=== PATIENT | female | born 1980 | race American Indian/Alaskan Native ===

== ENCOUNTER 2017-08-18 17:12 | Emergency (ER) | payer OTHER ==
--- NOTE | 2017-08-18 19:00 | XRay Report ---
FINAL REPORT EXAM: XR FINGER(S) 2+V LT HISTORY: injury TO LT LITTLE FINGER TECHNIQUE: Left 5th finger three views PRIORS: None. FINDINGS: There is acute traumatic moderately displaced fracture through the distal aspect distal phalanx of the 5th digit extending through the tuft. Articular surface appears intact. No evidence for dislocation. No radiopaque foreign bodies are identified. IMPRESSION: Acute fracture distal phalanx of the 5th digit
--- NOTE | 2017-08-18 23:12 | Emergency Department Report ---
ED Upper Extremity Inj HPI - General Chief Complaint: Extremity Injury, Upper Stated Complaint: LEFT HAND FINGER PAIN Time Seen by Provider: 08/18/17 22:33 Source: patient Mode of arrival: Ambulatory Limitations: No Limitations - History of Present Illness Initial Comments: This is a 37-year-old female nontoxic, well nourished in appearance, no acute signs of distress presents to the ED with c/o of left 5th digit finger pain status post fall. Patient states she was chasing her dog and tripped and fell on her fifth digit fingertip of the left. Patient denies any numbness, tingling , fever, chills, nausea, vomiting, chest pain or shortness of breath. Patient denies any trauma. Denies any head trauma. Denies loss of consciousness. Patient denies any drug allergies or past medical history besides asthma and hypertension. MD Complaint: Injury to:: left, finger -: This afternoon Other Extremity Injury: Fingers: Left (5th) Other Injuries: none Place: home Severity scale (0 -10): 8 Improves With: none Worsens With: none Context: fall, direct blow Associated Symptoms: denies other symptoms. denies: weakness, numbness, neck pain, suspects foreign body, nausea/vomiting, heard/felt popping sensat - Related Data Previous Rx's Medication Instructions Recorded Last Taken Type Ibuprofen [Motrin] 600 mg PO Q8H PRN #30 tablet 08/18/17 Unknown Rx Allergies Allergy/AdvReac Type Severity Reaction Status Date / Time No Known Allergies Allergy Unverified 08/18/17 18:25 ED Review of Systems ROS: Stated complaint: LEFT HAND FINGER PAIN Other details as noted in HPI Constitutional: denies: chills, fever Eyes: denies: eye pain, eye discharge, vision change ENT: denies: ear pain, throat pain Respiratory: denies: cough, shortness of breath, wheezing Cardiovascular: denies: chest pain, palpitations Endocrine: no symptoms reported Gastrointestinal: denies: abdominal pain, nausea, diarrhea Genitourinary: denies: urgency, dysuria, discharge Musculoskeletal: denies: back pain, joint swelling, arthralgia Skin: denies: rash, lesions Neurological: denies: headache, weakness, paresthesias Psychiatric: denies: anxiety, depression Hematological/Lymphatic: denies: easy bleeding, easy bruising ED Past Medical Hx - Past Medical History Previous Medical History?: No Hx Hypertension: Yes Hx Asthma: Yes - Social History Smoking Status: Never Smoker Substance Use Type: None - Medications Home Medications: Home Medications Medication Instructions Recorded Confirmed Last Taken Type Ibuprofen [Motrin] 600 mg PO Q8H PRN #30 tablet 08/18/17 Unknown Rx ED Physical Exam - General Limitations: No Limitations General appearance: alert, in no apparent distress - Head Head exam: Present: atraumatic, normocephalic - Eye Eye exam: Present: normal appearance - ENT ENT exam: Present: mucous membranes moist - Neck Neck exam: Present: normal inspection - Respiratory Respiratory exam: Present: normal lung sounds bilaterally. Absent: respiratory distress - Cardiovascular Cardiovascular Exam: Present: regular rate, normal rhythm. Absent: systolic murmur, diastolic murmur, rubs, gallop - GI/Abdominal GI/Abdominal exam: Present: soft, normal bowel sounds - Extremities Exam Extremities exam: Present: normal inspection, full ROM, tenderness, normal capillary refill. Absent: pedal edema, joint swelling, calf tenderness - Expanded Upper Extremity Exam Left General: Present: normal inspection Shoulder Exam: Present: normal inspection, full ROM Upper Arm exam: Present: normal inspection, full ROM Elbow exam: Present: normal inspection, full ROM Forearm Wrist exam: Present: normal inspection, full ROM. Absent: tenderness, swelling, abrasion, laceration, ecchymosis, deformity, crepidus, dislocation, erythema, tenderness over anatomical snuff box, pain with axial thumb loading Hand Wrist exam: Present: normal inspection, full ROM, tenderness. Absent: swelling, abrasion, laceration, ecchymosis, deformity, crepidus, dislocation, erythema, amputation, nail avulsion, subungual hematoma Hand L/R Back: 1 - pain Neuro motor exam: Present: wrist extension intact, thumb opposition intact, thumb IP flexion intact, thumb adduction intact, fingers 2-5 abduction intact Neurosensory exam: Present: 2-point discrimination, radial nerve intact, ulnar nerve intact, median nerve intact Vascular: Present: vascular compromise, normal capillary refill, radial pulse, brachial pulse, ulnar pulse - Back Exam Back exam: Present: normal inspection, full ROM. Absent: tenderness, CVA tenderness (R), CVA tenderness (L), muscle spasm, paraspinal tenderness, vertebral tenderness, rash noted - Neurological Exam Neurological exam: Present: alert, oriented X3, CN II-XII intact, normal gait, reflexes normal - Psychiatric Psychiatric exam: Present: normal affect, normal mood - Skin Skin exam: Present: warm, dry, intact, normal color. Absent: rash ED Course Vital Signs 08/18/17 18:22 Temperature 98.4 F Pulse Rate 79 Respiratory 16 Rate Blood Pressure 136/83 O2 Sat by Pulse 100 Oximetry - Reevaluation(s) Reevaluation #1: 08/18/17 23:17 Patient is speaking in full sentences with no signs of distress noted. ED Medical Decision Making - Medical Decision Making 37-year-old female that presents with left fifth digit distal phalanx fracture. Patient is stable and was examined by me. X-ray has been obtained and dictated radiologist. Patient is notified of x-ray results with her by the patient. patient received a silver baseball splint to the extremity. patient was instructed to rice therapy. patient received motrin in the ed as well as discharged. patient was instructed Follow-up with a orthopedic doctor in 3-5 days or if symptoms worsen and continue return to emergency room as soon as possible. At time time of discharge, the patient does not seem toxic or ill in appearance. No acute signs of distress noted. Patient agrees to discharge treatment plan of care. No further questions noted by the patient. Critical care attestation.: If time is entered above; I have spent that time in minutes in the direct care of this critically ill patient, excluding procedure time. ED Disposition Clinical Impression: Finger fracture Qualifiers: Encounter type: initial encounter Finger: little finger Fracture type: closed Phalanx: distal Fracture alignment: nondisplaced Laterality: left Qualified Code (s): S62.667A - Nondisplaced fracture of distal phalanx of left little finger, initial encounter for closed fracture Disposition: TO HOME OR SELFCARE Is pt being admited?: No Does the pt Need Aspirin: No Condition: Stable Instructions: Ibuprofen (By mouth), Finger Fracture (ED), RICE Therapy (ED) Additional Instructions: Follow-up with a orthopedic doctor in 3-5 days or if symptoms worsen and continue return to emergency room as soon as possible. Rest, and ice extremity. Prescriptions: Ibuprofen [Motrin] 600 mg PO Q8H PRN #30 tablet PRN Reason: Pain Referrals: PRIMARY CARE, [Primary Care Provider] - 3-5 Days MOUSTAPHA ELENA MD [Staff Physician] - 3-5 Days [facility] [Outside] - 3-5 Days [facility] [Outside] - 3-5 Days Forms: Work/School Release Form(ED)
[2017-08-18] MEDS ORDERED: MOTRIN PO ONE (23:13)
[2017-08-18 23:38] VITALS: BP 135/82
== END 2017-08-18 23:38 | disposition home or self-care (01) ==
LOC: ED 17:12
DX: S62.667A Nondisplaced fracture of distal phalanx of left little finger, initial encounter for closed fracture (principal); I10 Essential (primary) hypertension; J45.909 Unspecified asthma, uncomplicated; W01.10XA Fall on same level from slipping, tripping and stumbling with subsequent striking against unspecified object, initial encounter; Y93.89 Activity, other specified; Y99.8 Other external cause status; Y92.009 Unspecified place in unspecified non-institutional (private) residence as the place of occurrence of the external cause

== ENCOUNTER 2019-05-15 14:20 | Emergency (ER) | payer SELFPAY ==
[2019-05-15 14:31] VITALS: BP 147/92
[2019-05-15] MEDS ORDERED: dexAMETHasone 20 MG/5 ML VIAL IM ONE (14:32)
--- NOTE | 2019-05-15 14:33 | Event Note ---
ED Screening Note Date of service: 05/15/19 Time: 14:31 ED Screening Note: 38 y o female with pmh of asthma presents with dry cough and ran out of meds no asthma attack also left eye swelling and irritation, resolved This initial assessment/diagnostic orders/clinical plan/treatment(s) is/are terry bject to change based on patients health status, clinical progression and re- assessment by fellow clinical providers in the ED. Further treatment and workup at subsequent clinical providers discretion. Patient/guardian urged not to elope from the ED as their condition may be serious if not clinically assessed and managed. Initial orders include: decadron inhaler refill cough suppressant
[2019-05-15] MEDS ORDERED: ALBUTEROL 2.5 MG/3 ML NEBU IH ONE (15:29)
[2019-05-15] MEDS ORDERED: predniSONE 20 MG TAB PO ONE (15:29)
--- NOTE | 2019-05-15 15:32 | Emergency Department Report ---
Minor Respiratory - HPI Chief Complaint: Dyspnea/Respdistress Stated Complaint: ASTHMA/MED REFILL/LFT EYE SWELL Time Seen by Provider: 05/15/19 14:29 Duration: 5 Days Pain Location: Chest Severity: mild Minor Respiratory: Yes Rhinorrhea, Yes Able to Tolerate Fluids, Yes Cough, No Sore Throat, No Ear Pain, No Sick Contacts, No Hemoptysis, No Chest Pain, No Shortness of Breath, No Fever Other History: 38 YO AA FEMALE COME TO ER WITH WHEEZING. SHE HAS ASTHMA AND IS OUT OF HER INHALER. NO FEVER. NO PURULENT SPUTUM. ED Review of Systems ROS: Stated complaint: ASTHMA/MED REFILL/LFT EYE SWELL Other details as noted in HPI Comment: All other systems reviewed and negative ED Past Medical Hx - Past Medical History Previous Medical History?: Yes Hx Hypertension: Yes Hx Asthma: Yes - Surgical History Past Surgical History?: No - Family History Family history: no significant - Social History Smoking Status: Never Smoker - Medications Home Medications: Home Medications Medication Instructions Recorded Confirmed Last Taken Type ALBUTEROL NEB's [Proventil 0.083% 2.5 mg IH TID PRN #1 box 05/15/19 Unknown Rx NEBS] Albuterol Sulfate [Proair 90 mcg IH QID PRN #1 [email or web address] 05/15/19 Unknown Rx Respiclick] Cetirizine HCl [ZyrTEC] 10 mg PO DAILY #30 capsule 05/15/19 Unknown Rx Fluticasone [Flonase] 1 spray NS QDAY #1 bottle 05/15/19 Unknown Rx predniSONE [Deltasone] 20 mg PO DAILY #5 tablet 05/15/19 Unknown Rx Minor Respiratory Exam - Exam General: Vital signs noted. No distress. Alert and acting appropriately. HEENT: Yes Moist Mucous Membranes, Yes Rhinorrhea, No Pharyngeal Erythema, No Pharyngeal Exudates, No Conjuctival Injection, No Frontal Tenderness, No Maxillary Tenderness Ear: Neither TM Bulge, Neither TM Erythema, Neither EAC Pain, Neither EAC Discharge Neck: Yes Supple, No Adenopathy Lungs: Yes Good Air Exchange, Yes Wheezes Heart: Yes Regular Abdomen: No Tenderness Skin: No Rash Neurologic: Alert and oriented, no deficits. Musculoskeletal: Unremarkable. ED Course Vital Signs 05/15/19 14:29 Temperature 97.7 F Pulse Rate 83 Respiratory 20 Rate Blood Pressure 147/92 [Right] O2 Sat by Pulse 99 Oximetry ED Medical Decision Making - Medical Decision Making NO FEVER NON TOXIC NON ILL AMBULATORY TO ER TAKING PO MEDICATED IN ER DC HOME WITH DC PLAN OF CARE, RX AND FOLLOW UP Vital Signs 05/15/19 14:29 Temperature 97.7 F Pulse Rate 83 Respiratory 20 Rate Blood Pressure 147/92 [Right] O2 Sat by Pulse 99 Oximetry - Differential Diagnosis SIMPLE URI- ASTHMA AE- PNA Critical care attestation.: If time is entered above; I have spent that time in minutes in the direct care of this critically ill patient, excluding procedure time. ED Disposition Clinical Impression: Asthma with acute exacerbation, Medication refill Disposition: DC-01 TO HOME OR SELFCARE Is pt being admited?: No Does the pt Need Aspirin: No Condition: Stable Instructions: Asthma (ED) Additional Instructions: KEEP WELL HYDRATED MEDS ORDERED TODAY FOLLOW UP WITH PCP REFERRAL BELOW Prescriptions: predniSONE [Deltasone] 20 mg PO DAILY #5 tablet Fluticasone [Flonase] 1 spray NS QDAY #1 bottle Albuterol Sulfate [Proair Respiclick] 90 mcg IH QID PRN #1 aer.[email or web address] PRN Reason: Wheezing ALBUTEROL NEB's [Proventil 0.083% NEBS] 2.5 mg IH TID PRN #1 box PRN Reason: Wheezing Cetirizine HCl [ZyrTEC] 10 mg PO DAILY #30 capsule Referrals: SARAH UGALDE MD [Staff Physician] - 3-5 Days Time of Disposition: 15:30
== END 2019-05-15 16:31 | disposition home or self-care (01) ==
LOC: ED 14:20
DX: J45.901 Unspecified asthma with (acute) exacerbation (principal); I10 Essential (primary) hypertension; Z76.0 Encounter for issue of repeat prescription; Z79.899 Other long term (current) drug therapy
CPT/HCPCS: 94640; 99282; J7512

== ENCOUNTER 2019-07-06 20:20 | Emergency (ER) | payer SELFPAY ==
[2019-07-06] MEDS ORDERED: cloNIDine 0.1 MG TAB PO ONE (21:45)
[2019-07-06] MEDS ORDERED: LEVALBUTEROL 0.63 MG/3 ML NEBU IH ONE (21:45)
[2019-07-06] MEDS ORDERED: methylPREDNISolone Sod Succinate 125 MG/2 ML INJ IM ONE (21:45)
[2019-07-06] MEDS ORDERED: IPRATROPIUM 0.02% NEBU 2.5 ML IH ONE (21:45)
--- NOTE | 2019-07-06 21:47 | Emergency Department Report ---
ED Asthma HPI - General Chief Complaint: Adult Asthma Stated Complaint: SOB ASTHMA Time Seen by Provider: 07/06/19 21:43 Source: patient Mode of arrival: Ambulatory Limitations: No Limitations - History of Present Illness Initial Comments: This is a 39-year-old female here report that she is having difficulty breathing, wheezing and some coughing and this is similar to her her previous asthma attack. Denies any fever or chills. Denies any chest pain or back pain. Patient has elevated blood pressure and report that she ran out of her losartan /HCTZ which was prescribed by Dr. Villavicencio at [facility] who is her primary care physician and that they have losartan and back order and she tried 6 pharmacy and they do not have losartan/HCTZ. She said her blood pressures usually stable when she takes her blood pressure medication. Denies any abdominal pain. Denies any chest pain or back pain. Denies any visual difficulties or dizziness. Denies any nausea or vomiting. Denies any neck pain or stiffness She says she had headache on and off generalize which is usually caused by elevated blood pressure and she said earlier it was 7 out of 10 but now it is about 2 out of 10. She has no surgical history but states medical history is hypertension and asthma. She is requesting blood pressure medication and refill on her asthma medication MD Complaint: "asthma attack", shortness of breath, wheezing Onset/Timin -: days(s) Asthma History: childhood onset, history of prior ED visit Severity: similar to prior Context: ran out of meds Associated Symptoms: dry cough. denies: productive cough, fever, chest pain, hemoptysis, leg edema, syncope Treatments Prior to Arrival: other - Related Data Current Asthma Therapy: inhaled bronchodilator Previous Rx's Medication Instructions Recorded Last Taken Type ALBUTEROL NEB's [Proventil 0.083% 2.5 mg IH TID PRN #1 box 05/15/19 Unknown Rx NEBS] Albuterol Sulfate [Proair 90 mcg IH QID PRN #1 aer.pow.ba 05/15/19 Unknown Rx Respiclick] Cetirizine HCl [ZyrTEC] 10 mg PO DAILY #30 capsule 05/15/19 Unknown Rx Fluticasone [Flonase] 1 spray NS QDAY #1 bottle 05/15/19 Unknown Rx predniSONE [Deltasone] 20 mg PO DAILY #5 tablet 05/15/19 Unknown Rx ALBUTEROL Inhaler (OR & NICU) 2 puff IH Q6H PRN #1 inhalation 07/07/19 Unknown Rx [ProAir HFA Inhaler] Inhaler, Assist Devices [Space 1 each MC QDAY #1 spacer 07/07/19 Unknown Rx Chamber Plus] Prednisone [predniSONE 10 mg 10 mg PO .TAPER 6 Days #1 tab.ds.pk 07/07/19 Unknown Rx (6-Day Pack, 21 Tabs)] hydroCHLOROthiazide [HCTZ] 25 mg PO QDAY 30 Days #60 tablet 07/07/19 Unknown Rx Allergies Allergy/AdvReac Type Severity Reaction Status Date / Time No Known Allergies Allergy Verified 05/15/19 14:30 ED Review of Systems ROS: Stated complaint: SOB ASTHMA Other details as noted in HPI Constitutional: denies: chills, fever Eyes: denies: eye pain ENT: denies: ear pain, throat pain, congestion Respiratory: cough, shortness of breath, SOB with exertion, wheezing. denies: orthopnea, SOB at rest, stridor Cardiovascular: denies: chest pain, palpitations, dyspnea on exertion, edema, syncope Gastrointestinal: denies: abdominal pain, nausea, vomiting, diarrhea, constipation, hematochezia Musculoskeletal: denies: back pain, joint swelling, arthralgia, myalgia Skin: denies: rash Neurological: headache. denies: weakness, numbness, paresthesias, confusion, abnormal gait, vertigo ED Past Medical Hx - Past Medical History Previous Medical History?: Yes Hx Hypertension: Yes Hx Asthma: Yes - Surgical History Past Surgical History?: No - Family History Family history: hypertension - Social History Smoking Status: Former Smoker Substance Use Type: None - Medications Home Medications: Home Medications Medication Instructions Recorded Confirmed Last Taken Type ALBUTEROL NEB's [Proventil 0.083% 2.5 mg IH TID PRN #1 box 05/15/19 Unknown Rx NEBS] Albuterol Sulfate [Proair 90 mcg IH QID PRN #1 aer.pow.ba 05/15/19 Unknown Rx Respiclick] Cetirizine HCl [ZyrTEC] 10 mg PO DAILY #30 capsule 05/15/19 Unknown Rx Fluticasone [Flonase] 1 spray NS QDAY #1 bottle 10/08/19 Unknown Rx predniSONE [Deltasone] 20 mg PO DAILY #5 tablet 05/15/19 Unknown Rx ALBUTEROL Inhaler (OR & NICU) 2 puff IH Q6H PRN #1 inhalation 07/07/19 Unknown Rx [ProAir HFA Inhaler] Inhaler, Assist Devices [Space 1 each MC QDAY #1 spacer 07/07/19 Unknown Rx Chamber Plus] Prednisone [predniSONE 10 mg 10 mg PO .TAPER 6 Days #1 tab.ds.pk 07/07/19 Unknown Rx (6-Day Pack, 21 Tabs)] hydroCHLOROthiazide [HCTZ] 25 mg PO QDAY 30 Days #60 tablet 07/07/19 Unknown Rx ED Physical Exam - General Limitations: No Limitations General appearance: alert, in no apparent distress - Head Head exam: Present: atraumatic, normocephalic, normal inspection - Eye Eye exam: Present: normal appearance, PERRL, EOMI Pupils: Present: normal accommodation - ENT ENT exam: Present: normal exam, normal orophraynx, mucous membranes moist, TM's normal bilaterally, normal external ear exam - Neck Neck exam: Present: normal inspection, full ROM. Absent: tenderness, lymphadenopathy - Respiratory Respiratory exam: Present: wheezes, other (Dry cough). Absent: respiratory distress, rales, rhonchi, stridor, chest wall tenderness, accessory muscle use, decreased breath sounds, prolonged expiratory - Cardiovascular Cardiovascular Exam: Present: regular rate, normal rhythm, normal heart sounds - GI/Abdominal GI/Abdominal exam: Present: soft, normal bowel sounds. Absent: distended, tenderness, organomegaly, bruit - Extremities Exam Extremities exam: Present: normal inspection, normal capillary refill, other (No cce. + 2 pulses in all extremities, no neurovascular compromise). Absent: full ROM, tenderness, pedal edema, joint swelling, calf tenderness - Back Exam Back exam: Present: normal inspection, full ROM, other (blades without any difficulties). Absent: tenderness - Neurological Exam Neurological exam: Present: alert, oriented X3, normal gait, reflexes normal. Absent: motor sensory deficit - Expanded Neurological Exam Expanded Neurological exam: Absent: innattentive, memory loss-remote event, memory loss- recent event, ataxia, receptive aphasia, expressive aphasia, total aphasia, tremor, protecting the airway Patient oriented to: Present: person, place, time Speech: Present: fluid speech Cranial nerves: EOM's Intact: Normal, Gag Reflex: Normal, Nystagmus: Normal, Facial Sensation: Normal Cerebellar function: Romberg: Normal Upper motor neuron: Pronator Drift: Normal, Sensory Extinction: Normal Sensory exam: Upper Extremity Light Touch: Normal, Upper Extremity Temperature: Normal, Lower Extremity Light Touch: Normal, Lower Extremity Temperature: Normal Motor strength exam: RUE: 5, LUE: 5, RLE: 5, LLE: 5 Best Eye Response ([place]): (4) open spontaneously Best Motor Response ([place]): (6) obeys commands Best Verbal Response ([place]): (5) oriented [place] Total: 15 - Psychiatric Psychiatric exam: Present: normal affect, normal mood - Skin Skin exam: Present: warm, intact, normal color. Absent: rash ED Course Vital Signs 07/06/19 07/06/19 07/06/19 20:27 22:03 22:40 Temperature 98.4 F Pulse Rate 80 76 Pulse Rate [ 75 Bilateral Throughout] Respiratory 14 18 Rate Respiratory 20 Rate [Bilateral Throughout] Blood Pressure 185/108 187/110 Blood Pressure 187/110 [Left] O2 Sat by Pulse 100 100 Oximetry 07/06/19 23:50 Temperature Pulse Rate Pulse Rate [ Bilateral Throughout] Respiratory Rate Respiratory Rate [Bilateral Throughout] Blood Pressure Blood Pressure 160/100 [Left] O2 Sat by Pulse Oximetry - Reevaluation(s) Reevaluation #1: 07/07/19 00:02 Patient given Xopenex 1.26 mg and Atrovent 1 mg nebulizer. Patient given Solu- Medrol 125 mg IM and upon reevaluation she says she feels a lot better. Her ED Medical Decision Making - Radiology Data Radiology results: report reviewed Chest x-ray dictated by radiologist and report reviewed by myself. Please see Findings [address] [address] XRay Report Signed Patient: AVELINA RODRIGUEZ MR#: [id number] : 1980 Acct:[id number] Age/Sex: 39 / F ADM Date: 07/06/19 Loc: ED Attending Dr: Ordering Physician: RITESH BERNABE Date of Service: 07/06/19 Procedure(s): XR chest routine 2V Accession Number(s): [id number] cc: RITESH BERNABE Time In Minutes: CHEST 2 VIEWS INDICATION / CLINICAL INFORMATION: cough,sob. COMPARISON: None available. FINDINGS: SUPPORT DEVICES: None. HEART / MEDIASTINUM: No significant abnormality. LUNGS / PLEURA: There is a tiny left pleural effusion without significant pulmonary parenchymal abnormality. No pneumothorax. ADDITIONAL FINDINGS: No significant additional findings. IMPRESSION: 1. Tiny left pleural effusion without significant pulmonary parenchymal abnormality. Signer Name: Jorje Waldron MD Signed: 07/06/2019 10:17 PM Workstation Name: [id number] Transcribed By: ERIC Dictated By: Jorje Waldron MD Electronically Authenticated By: Jorje Waldron MD Signed Date/Time: 07/06/19 2006 - Medical Decision Making This is a 39-year-old patient's found to have asthma exacerbation and elevated blood pressure with history of high hypertension due to an available availability of her blood pressure medication side/HCTZ. She was given a nebulizer treatment along with steroids in emergency room and her her O2 sat remains above 98%, vital signs are stable except blood pressure was elevated and she was given 0.1 mg of clonidine by mouth and upon recheck after 30 minutes her blood pressure is 160/100. Her headache is down to 2 out of 10 and she says she is feeling a lot better. Lung sounds are clear. Chest x-ray shows IMPRESSION: 1. Tiny left pleural effusion without significant pulmonary parenchymal abnormality otherwise normal. I discussed the patient's her x-ray findings of pleural effusion and let her know she needs to follow up with primary care for repeat x-ray and also reverberatory skimmer. Spoke with Dr. Thakur regarding patient complained and x-ray findings along with blood pressure and was reported that patient can be followed up with her primary care physician which she does have one at this [facility]. She says she sees Dr. Villavicencio. I spoke with her regarding lifestyle modification and we will give her discharge instructions on these for blood pressure management. I discussed with her that she needs to call on Tuesday to schedule an appointment with Dr. Villavicencio for follow-up visits and I will place her in HCTZ but she will need to have Dr. Villavicencio revise her losartan and that she should keep a log of her blood pressure and take to primary care visit with her. She voiced understanding and all of this and I also told her that she needs to follow up regarding asthma and if condition worsens to return to the emergency room. Pain is better, vital signs stable and afebrile in patient discharged home her prescription for HCTZ, Medrol Dosepak and albuterol inhaler refill with spacer. - Differential Diagnosis PNA, acute asthma exacerbation, bronchitis, urinary cough and congestion, Critical care attestation.: If time is entered above; I have spent that time in minutes in the direct care of this critically ill patient, excluding procedure time. ED Disposition Clinical Impression: Elevated blood pressure reading in office with diagnosis of hypertension, Pleural effusion Asthma attack Qualifiers: Asthma severity: moderate Asthma persistence: unspecified Qualified Code(s): J45.901 - Unspecified asthma with (acute) exacerbation Disposition: TO HOME OR SELFCARE Is pt being admited?: No Does the pt Need Aspirin: No Condition: Stable Instructions: Hypertension (ED), Asthma (ED), Pleural Effusion (ED), DASH Eating Plan (ED), How to Take a Blood Pressure (ED), Heart Healthy Diet (ED) Additional Instructions: Please follow-up with your primary care doctor at abuse and also reverberatory skimmer regarding asthma, pleural effusion and elevated blood pressure. I will refill here HCTZ but you will need to follow up with Dr. Villavicencio in regards to change in losartan Please keep a log of your blood pressure and take to primary care physician with you. If your Condition worsens, please return to emergency room. Please follow discharge instructions on the left cell medication for blood p ressure management Referrals: [facility] MD COMPA [Primary Care Provider] - 2-3 Days LAZARA VILLAVICENCIO MD [Referring] - 2-3 Days FAUSTINO BURKETT MD [Staff Physician] - 2-3 Days Forms: Work/School Release Form(ED)
--- NOTE | 2019-07-06 22:22 | XRay Report ---
CHEST 2 VIEWS INDICATION / CLINICAL INFORMATION: cough,sob. COMPARISON: None available. FINDINGS: SUPPORT DEVICES: None. HEART / MEDIASTINUM: No significant abnormality. LUNGS / PLEURA: There is a tiny left pleural effusion without significant pulmonary parenchymal abnor mality. No pneumothorax. ADDITIONAL FINDINGS: No significant additional findings. IMPRESSION: 1. Tiny left pleural effusion without significant pulmonary parenchymal abnormality. Signer Name: Jorje Waldron MD Signed: 07/06/2019 10:17 PM Workstation Name: [id number]
[2019-07-06 23:51] VITALS: BP 160/100
== END 2019-07-07 00:30 | disposition home or self-care (01) ==
LOC: ED 20:20
DX: J45.901 Unspecified asthma with (acute) exacerbation (principal); I10 Essential (primary) hypertension; J90 Pleural effusion, not elsewhere classified; Z87.891 Personal history of nicotine dependence
CPT/HCPCS: 71046; 94640; 99283; J2930; 94644

== ENCOUNTER 2019-09-20 00:15 | Emergency (ER) | payer SELFPAY ==
[2019-09-20 00:27] VITALS: BP 141/107
--- NOTE | 2019-09-20 03:06 | Emergency Department Report ---
- General Chief Complaint: Adult Asthma Stated Complaint: ASTHMA Source: patient Mode of arrival: Ambulatory Limitations: No Limitations - History of Present Illness Initial Comments: Patient is a 39-year-old -[place] female with a history of hypertension and asthma who presents to the ED with complaint of acute onset persistent nasal and sinus congestion, persistent dry cough with wheezing intermittently for the last 3 days. Patient states that she ran out of her inhaler and would like a refill on the same. Patient denies fever, chills, nausea, vomiting, dizziness, chest pain, abdominal pain, sore throat, diffuse body aches and pains or headache. MD Complaint: cough, rhinorrhea, nasal congestion -: Sudden, days(s) (3) Severity: mild Severity scale (0 -10): 2 Quality: dull, aching Consistency: intermittent Improves With: other (Albuterol inhaler) Worsens With: nothing Context: other (Rainout of her albuterol inhaler) Associated Symptoms: denies other symptoms, rhinorrhea, nasal congestion, cough, shortness of breath. denies: fever, chills, myalgias, diaphoresis, headache, sore throat, chest pain, abdominal pain, nausea, vomiting, dysuria, rash, right sweats, weight loss, epistaxis, hoarseness, ear pain Treatments Prior to Arrival: none - Related Data Previous Rx's Medication Instructions Recorded Last Taken Type ALBUTEROL NEB's [Proventil 0.083% 2.5 mg IH TID PRN #1 box 05/15/19 Unknown Rx NEBS] Albuterol Sulfate [Proair 90 mcg IH QID PRN #1 aer.pow.ba 05/15/19 Unknown Rx Respiclick] Cetirizine HCl [ZyrTEC] 10 mg PO DAILY #30 capsule 05/15/19 Unknown Rx Fluticasone [Flonase] 1 spray NS QDAY #1 bottle 05/15/19 Unknown Rx predniSONE [Deltasone] 20 mg PO DAILY #5 tablet 05/15/19 Unknown Rx Albuterol INH(or & Nicu Only) 2 puff IH Q6H PRN #1 inhalation 07/07/19 Unknown Rx [ProAir HFA Inhaler] Inhaler, Assist Devices [Space 1 each MC QDAY #1 spacer 07/07/19 Unknown Rx Chamber Plus] Prednisone [predniSONE 10 mg 10 mg PO .TAPER 6 Days #1 tab.ds.pk 07/07/19 Unknown Rx (6-Day Pack, 21 Tabs)] hydroCHLOROthiazide [HCTZ] 25 mg PO QDAY 30 Days #60 tablet 07/07/19 Unknown Rx Albuterol Sulfate [Proventil Hfa] 1 - 2 puff IH Q6H PRN #1 inh 09/20/19 Unknown Rx Benzonatate [Tessalon Perles] 100 mg PO Q8HR #30 capsule 09/20/19 Unknown Rx predniSONE [Deltasone] 40 mg PO QDAY #12 tab 09/20/19 Unknown Rx Allergies Allergy/AdvReac Type Severity Reaction Status Date / Time No Known Allergies Allergy Verified 05/15/19 14:30 ED Review of Systems ROS: Stated complaint: ASTHMA Other details as noted in HPI Constitutional: denies: chills, fever Eyes: denies: eye pain, eye discharge, vision change ENT: congestion. denies: ear pain, throat pain Respiratory: cough, shortness of breath, wheezing Cardiovascular: denies: chest pain, palpitations Endocrine: no symptoms reported Gastrointestinal: denies: abdominal pain, nausea, diarrhea Genitourinary: denies: urgency, dysuria, discharge Musculoskeletal: denies: back pain, joint swelling, arthralgia Skin: denies: rash, lesions Neurological: denies: headache, weakness, paresthesias Psychiatric: denies: anxiety, depression Hematological/Lymphatic: denies: easy bleeding, easy bruising ED Past Medical Hx - Past Medical History Previous Medical History?: Yes Hx Hypertension: Yes Hx Asthma: Yes - Surgical History Past Surgical History?: No - Social History Smoking Status: Former Smoker Substance Use Type: None - Medications Home Medications: Home Medications Medication Instructions Recorded Confirmed Last Taken Type ALBUTEROL NEB's [Proventil 0.083% 2.5 mg IH TID PRN #1 box 05/15/19 Unknown Rx NEBS] Albuterol Sulfate [Proair 90 mcg IH QID PRN #1 aer.pow.ba 05/15/19 Unknown Rx Respiclick] Cetirizine HCl [ZyrTEC] 10 mg PO DAILY #30 capsule 05/15/19 Unknown Rx Fluticasone [Flonase] 1 spray NS QDAY #1 bottle 05/15/19 Unknown Rx predniSONE [Deltasone] 20 mg PO DAILY #5 tablet 05/15/19 Unknown Rx Albuterol INH(or & Nicu Only) 2 puff IH Q6H PRN #1 inhalation 07/07/19 Unknown Rx [ProAir HFA Inhaler] Inhaler, Assist Devices [Space 1 each MC QDAY #1 spacer 07/07/19 Unknown Rx Chamber Plus] Prednisone [predniSONE 10 mg 10 mg PO .TAPER 6 Days #1 tab.ds.pk 07/07/19 Unknown Rx (6-Day Pack, 21 Tabs)] hydroCHLOROthiazide [HCTZ] 25 mg PO QDAY 30 Days #60 tablet 07/07/19 Unknown Rx Albuterol Sulfate [Proventil Hfa] 1 - 2 puff IH Q6H PRN #1 inh 09/20/19 Unknown Rx Benzonatate [Tessalon Perles] 100 mg PO Q8HR #30 capsule 09/20/19 Unknown Rx predniSONE [Deltasone] 40 mg PO QDAY #12 tab 09/20/19 Unknown Rx ED Physical Exam - General Limitations: No Limitations General appearance: alert, in no apparent distress - Head Head exam: Present: atraumatic, normocephalic, normal inspection - Eye Eye exam: Present: normal appearance, PERRL, EOMI Pupils: Present: normal accommodation - ENT ENT exam: Present: normal orophraynx, mucous membranes moist, TM's normal bilaterally, normal external ear exam, other (Grossly congested nasal passages) - Neck Neck exam: Present: normal inspection, full ROM - Respiratory Respiratory exam: Present: normal lung sounds bilaterally. Absent: respiratory distress, wheezes, rales, rhonchi, chest wall tenderness, accessory muscle use, decreased breath sounds - Cardiovascular Cardiovascular Exam: Present: regular rate, normal rhythm, normal heart sounds. Absent: systolic murmur, diastolic murmur, rubs, gallop - GI/Abdominal GI/Abdominal exam: Present: soft, normal bowel sounds. Absent: distended, tenderness, guarding, hyperactive bowel sounds - Extremities Exam Extremities exam: Present: normal inspection, full ROM, normal capillary refill - Back Exam Back exam: Present: normal inspection, full ROM. Absent: tenderness, CVA tenderness (R), CVA tenderness (L), muscle spasm - Neurological Exam Neurological exam: Present: alert, oriented X3, CN II-XII intact, normal gait, reflexes normal - Psychiatric Psychiatric exam: Present: normal affect, normal mood - Skin Skin exam: Present: warm, dry, intact, normal color. Absent: rash ED Course Vital Signs 09/20/19 09/20/19 00:20 00:27 Temperature 98.5 F Pulse Rate 100 H Respiratory 14 Rate Blood Pressure 141/107 O2 Sat by Pulse 99 Oximetry ED Medical Decision Making - Medical Decision Making This is a 39-year-old female with a history of asthma who presented to the ED with persistent nasal and sinus congestion, persistent dry cough with intermittent wheezing and shortness of breath. In the ED, patient is alert and oriented x3 and is not in any distress with normal vital signs, with oxygen saturation of 99% on room air. Physical exam is unremarkable with normal lung sounds throughout with no wheezing or any adventitious lung sounds. Patient was discharged home on medications including albuterol inhaler prescription and steroid and advised to follow-up with her primary care physician in 5 to 7 days for reevaluation. Patient was advised return to the ED immediately if symptoms get worse. - Differential Diagnosis URI; Asthma; Bronchitis; Sinusitis; Pneumonia Critical care attestation.: If time is entered above; I have spent that time in minutes in the direct care of this critically ill patient, excluding procedure time. ED Disposition Clinical Impression: Acute upper respiratory infection, Acute asthmatic bronchitis Disposition: TO HOME OR SELFCARE Is pt being admited?: No Does the pt Need Aspirin: No Condition: Stable Instructions: Acute Bronchitis (ED), Asthma (ED), Upper Respiratory Infection (ED) Additional Instructions: Take medications with food, drink plenty of fluids and follow-up with your primary care physician in 5 to 7 days for reevaluation. Return to the ED immediately if symptoms get worse. Prescriptions: predniSONE [Deltasone] 40 mg PO QDAY #12 tab Albuterol Sulfate [Proventil Hfa] 1 - 2 puff IH Q6H PRN #1 inh PRN Reason: Dyspnea Benzonatate [Tessalon Perles] 100 mg PO Q8HR #30 capsule Referrals: [facility] [Outside] - 3-5 Days Time of Disposition: 03:02 Print Language: [id number]
== END 2019-09-20 03:10 | disposition home or self-care (01) ==
LOC: ED 00:15
DX: J06.9 Acute upper respiratory infection, unspecified (principal); J45.909 Unspecified asthma, uncomplicated; I10 Essential (primary) hypertension; Z87.891 Personal history of nicotine dependence; Z79.899 Other long term (current) drug therapy
CPT/HCPCS: 99282

== ENCOUNTER 2020-02-27 12:00 | Emergency (ER) | payer SELFPAY ==
[2020-02-27 13:56] VITALS: BP 158/100
--- NOTE | 2020-02-27 13:56 | Emergency Department Report ---
ED Recheck HPI - General Stated Complaint: Medication Refill Time Seen by Provider: 02/27/20 13:47 Source: patient, RN notes reviewed Limitations: No Limitations - History of Present Illness Initial Comments: 39-year-old female nontoxic, well in appearance with no signs of distress presents to the ED for medication refill. Stated has been out of her blood pressure medications for 3 months. Denies any complaints or symptoms. Denies f/u with PCP. Denies any chest pain, SOB, fever, chills, headache, stiffness, numbness or tingling. Denies any allergies. MD Complaint: medication refill request Returns Today for: request for prescription Symptoms Since Prior Visit: no new symptoms Associated Symptoms: none. denies: fever, chills, chest pain, shortness of breath, rash, malaise, [place], abdominal pain - Related Data Previous Rx's Medication Instructions Recorded Last Taken Type ALBUTEROL NEB's [Proventil 0.083% 2.5 mg IH TID PRN #1 box 05/15/19 Unknown Rx NEBS] Albuterol Sulfate [Proair 90 mcg IH QID PRN #1 aer.pow.ba 05/15/19 Unknown Rx Respiclick] Cetirizine HCl [ZyrTEC] 10 mg PO DAILY #30 capsule 05/15/19 Unknown Rx Fluticasone [Flonase] 1 spray NS QDAY #1 bottle 05/15/19 Unknown Rx predniSONE [Deltasone] 20 mg PO DAILY #5 tablet 05/15/19 Unknown Rx Albuterol Mdi (or & Nicu Only) 2 puff IH Q6H PRN #1 inhalation 07/07/19 Unknown Rx [ProAir HFA Inhaler] Inhaler, Assist Devices [Space 1 each MC QDAY #1 spacer 07/07/19 Unknown Rx Chamber Plus] Prednisone [predniSONE 10 mg 10 mg PO .TAPER 6 Days #1 tab.ds.pk 07/07/19 Unknown Rx (6-Day Pack, 21 Tabs)] hydroCHLOROthiazide [HCTZ] 25 mg PO QDAY 30 Days #60 tablet 07/07/19 Unknown Rx Albuterol Sulfate [Proventil Hfa] 1 - 2 puff IH Q6H PRN #1 inh 09/20/19 Unknown Rx Benzonatate [Tessalon Perles] 100 mg PO Q8HR #30 capsule 09/20/19 Unknown Rx predniSONE [Deltasone] 40 mg PO QDAY #12 tab 09/20/19 Unknown Rx Allergies Allergy/AdvReac Type Severity Reaction Status Date / Time No Known Allergies Allergy Verified 05/15/19 14:30 ED Review of Systems ROS: Stated complaint: Other details as noted in HPI Constitutional: denies: chills, fever Eyes: denies: eye pain, eye discharge, vision change ENT: denies: ear pain, throat pain Respiratory: denies: cough, shortness of breath, wheezing Cardiovascular: denies: chest pain, palpitations Endocrine: no symptoms reported Gastrointestinal: denies: abdominal pain, nausea, diarrhea Genitourinary: denies: urgency, dysuria, discharge Musculoskeletal: denies: back pain, joint swelling, arthralgia Skin: denies: rash, lesions Neurological: denies: headache, weakness, paresthesias Psychiatric: denies: anxiety, depression Hematological/Lymphatic: denies: easy bleeding, easy bruising ED Past Medical Hx - Past Medical History Hx Hypertension: Yes Hx Asthma: Yes - Social History Smoking Status: Former Smoker Substance Use Type: None - Medications Home Medications: Home Medications Medication Instructions Recorded Confirmed Last Taken Type ALBUTEROL NEB's [Proventil 0.083% 2.5 mg IH TID PRN #1 box 05/15/19 Unknown Rx NEBS] Albuterol Sulfate [Proair 90 mcg IH QID PRN #1 aer.pow.ba 05/15/19 Unknown Rx Respiclick] Cetirizine HCl [ZyrTEC] 10 mg PO DAILY #30 capsule 05/15/19 Unknown Rx Fluticasone [Flonase] 1 spray NS QDAY #1 bottle 05/15/19 Unknown Rx predniSONE [Deltasone] 20 mg PO DAILY #5 tablet 05/15/19 Unknown Rx Albuterol Mdi (or & Nicu Only) 2 puff IH Q6H PRN #1 inhalation 07/07/19 Unknown Rx [ProAir HFA Inhaler] Inhaler, Assist Devices [Space 1 each MC QDAY #1 spacer 07/07/19 Unknown Rx Chamber Plus] Prednisone [predniSONE 10 mg 10 mg PO .TAPER 6 Days #1 tab.ds.pk 07/07/19 Unknown Rx (6-Day Pack, 21 Tabs)] hydroCHLOROthiazide [HCTZ] 25 mg PO QDAY 30 Days #60 tablet 07/07/19 Unknown Rx Albuterol Sulfate [Proventil Hfa] 1 - 2 puff IH Q6H PRN #1 inh 09/20/19 Unknown Rx Benzonatate [Tessalon Perles] 100 mg PO Q8HR #30 capsule 09/20/19 Unknown Rx predniSONE [Deltasone] 40 mg PO QDAY #12 tab 09/20/19 Unknown Rx ED Physical Exam - General General appearance: alert, in no apparent distress - Head Head exam: Present: atraumatic, normocephalic - Eye Eye exam: Present: normal appearance - Neck Neck exam: Present: normal inspection, full ROM. Absent: tenderness, meningismus, lymphadenopathy - Respiratory Respiratory exam: Present: normal lung sounds bilaterally. Absent: respiratory distress, wheezes, rales, rhonchi, stridor, chest wall tenderness, accessory muscle use, decreased breath sounds, prolonged expiratory - Cardiovascular Cardiovascular Exam: Present: regular rate, normal rhythm, normal heart sounds. Absent: bradycardia, tachycardia, irregular rhythm, systolic murmur, diastolic murmur, rubs, gallop - GI/Abdominal GI/Abdominal exam: Present: soft, normal bowel sounds. Absent: distended, tenderness, guarding, rebound, rigid, diminished bowel sounds - Extremities Exam Extremities exam: Present: normal inspection, full ROM - Back Exam Back exam: Present: normal inspection, full ROM - Neurological Exam Neurological exam: Present: alert, oriented X3, normal gait - Psychiatric Psychiatric exam: Present: normal affect, normal mood - Skin Skin exam: Present: warm, dry, intact, normal color. Absent: rash ED Course Vital Signs 02/27/20 12:05 Temperature 98.1 F Pulse Rate 82 Respiratory 18 Rate Blood Pressure 158/100 - Reevaluation(s) Reevaluation #1: 02/27/20 13:53 Patient is speaking in full sentences with no with signs of distress noted. ED Recheck MDM - Medical Decision Making 39-year-old female that presents with nonmedical emergency. PAtient is stable and was examined by me. According to ACEP HTN guidelines, In ED patients with asymptomatic markedly elevated blood pressure, routine screening for acute target organ injury (eg, serum creatinine, urinalysis, ECG) is not required; In patients with asymptomatic markedly elevated blood pressure, routine ED medical intervention is not required. Patient is referred and has been given many referrals to follow-up. Patient was instructed to Follow-up with a primary care doctor in [place] or if symptoms worsen and continue return to emergency room as soon as possible. At time of discharge, the patient does not seem toxic or ill in appearance. No acute signs of distress noted. Patient agrees to discharge treatment plan of care. No further questions noted by the patient. Critical care attestation.: If time is entered above; I have spent that time in minutes in the direct care of this critically ill patient, excluding procedure time. ED Disposition Clinical Impression: Medication refill HTN (hypertension) Qualifiers: Hypertension type: unspecified Qualified Code(s): I10 - Essential (primary) hypertension Disposition: MED SCREENING EXAM-LEFT Is pt being admited?: No Does the pt Need Aspirin: No Condition: Stable Instructions: Hypertension (ED) Additional Instructions: Follow-up with a primary care doctor in [place] or if symptoms worsen and continue return to emergency room as soon as possible. Referrals: SHADY GARBER MD [Primary Care Provider] - 3-5 Days JOSE SCOTT MD [Staff Physician] - 3-5 Days [facility] [Provider Group] - 3-5 Days
== END 2020-02-27 14:00 | disposition left against medical advice (07) ==
LOC: ED 12:00
DX: I10 Essential (primary) hypertension (principal); Z53.21 Procedure and treatment not carried out due to patient leaving prior to being seen by health care provider